=== PATIENT | female | born 1970 | race Caucasian/White ===

== ENCOUNTER → 2017-06-18 | Outpatient (CLI) | payer OTHER ==
[2017-06-18 12:06] LABS: Basophils % (A) 0 %; Eosinophils # (A) 0.1 k/uL (0-0.7); Eosinophils % (A) 2 %; HCT 41.9 % (34.0-46.0); HGB 13.5 gm/dL (11.4-16.0); Lymphocytes # (A) 1.8 k/uL (1.0-4.8); Lymphocytes % (A) 26 %; MCH 29.4 pg (25.0-35.0); MCHC 32.2 g/dL (31.0-37.0); MCV 91.2 fL (80.0-100.0); Mean Platelet Volume 7.2; Monocytes # (A) 0.4 k/uL (0-1.0); Monocytes % (A) 5 %; Neutrophils # (A) 4.5 k/uL (1.3-7.7); Neutrophils % (A) 65 %; Platelet Count 237 k/uL (150-450); RBC 4.59 m/uL (3.80-5.40); RDW 13.3 % (11.5-15.5); WBC 6.9 k/uL (3.8-10.6)
== END | disposition home or self-care (01) ==
LOC: LABPAT 11:45
PROVIDERS: ATTEND Obstetrics & Gynecology
DX: Z01.812 Encounter for preprocedural laboratory examination (principal); R87.613 High grade squamous intraepithelial lesion on cytologic smear of cervix (HGSIL)
CPT/HCPCS: 36415; 85025

== ENCOUNTER 2017-07-07 09:58 | Day surgery (SDC) | payer OTHER ==
[2017-07-02 13:21] VITALS: BMI 31.8
[~2017-07-07 09:58] MED LIST: DEXAMETHASONE SOD PHOSPHATE 10 MG/ML 1 ML VIAL IV ONE; LACTATED RINGERS 1,000 ML IV SCH; MIDAZOLAM 2 MG/2 ML VIAL IV PRN; ONDANSETRON ODT 4 MG TAB PO ONE; Pre Op ABX Message 1 EACH MISC MISCELLANE ONE; SCOPOLAMINE 1.5MG/72HR PATCH TRANSDERM ONE; fentaNYL (PF) 50 MCG/ML 2 ML AMP IV PRN
[2017-07-07] MEDS ORDERED: LACTATED RINGERS 1,000 ML IV ONE (10:40)
[2017-07-07] MEDS ORDERED: LIDOCAINE 1% 20 ML VIAL (10MG/ML) FOR IV START INTRADERMA ONE (10:40)
[2017-07-07] MEDS ORDERED: ONDANSETRON 4 MG/2 ML VIAL IVP ONE (10:50)
[2017-07-07] MEDS ORDERED: HYDROCORTISONE SUCCINATE 100 MG/2 ML VIAL IV ONE (11:46)
[2017-07-07] MEDS ORDERED: KETOROLAC 30 MG/ML 1 ML VIAL ONE (12:07)
[2017-07-07] MEDS ORDERED: fentaNYL (PF) 50 MCG/ML 2 ML AMP ONE (12:07)
[2017-07-07] MEDS ORDERED: LIDOCAINE 1% INJ 10MG/ML (20 ML MDV) ONE (12:07)
[2017-07-07] MEDS ORDERED: PROPOFOL 10 MG/ML 20 ML VIAL IV ONE (12:07)
[2017-07-07] MEDS ORDERED: MIDAZOLAM 2 MG/2 ML VIAL ONE (12:07)
[2017-07-07] MEDS ORDERED: SODIUM CHLORIDE 0.9% 50 ML with ceFAZolin 2,000 MG IV ONE ×2 (12:22)
[2017-07-07] MEDS ORDERED: FERRIC SUBSULFATE (MONSELS) JAR TOPICAL ONE (12:23)
[2017-07-07] MEDS ORDERED: ACETIC ACID 15 DROPS/ML DROPS MISCELLANE ONE (12:24)
[2017-07-07] MEDS ORDERED: IODINE/POTASS IOD (LUGOLS) BTL TOPICAL ONE (12:24)
[2017-07-07] MEDS ORDERED: VASOPRESSIN 20 UNIT/ML 1 ML VIAL SQ ONE (12:24)
--- NOTE | 2017-07-07 12:51 | P.OP ---
Date of Procedure: 07/07/17 Preoperative Diagnosis: High-grade ROYER, postmenopausal bleeding. Positive ECC. Postoperative Diagnosis: Same, pathology pending Procedure(s) Performed: Cold knife conization, endocervical curettage, hysteroscopy and D&C. Anesthesia: MICKEY Surgeon: Haily Erwin Estimated Blood Loss (ml): 50 IV fluids (ml): 500 Urine output (ml): 500 Pathology: other Description of Procedure: Patient is brought to the operating suite where a general anesthetic is administered. She's placed in the dorsal lithotomy position. Antibiotics are given. The appropriate timeout is performed to assure proper patient and procedural identification. The cervix, vagina, perineal bodies are all prepped and draped in usual sterile fashion. Examination under anesthesia reveals a grade 2-3 rectocele, and a grade 2-3 uterine prolapse. The anterior lip of the cervix is grasped with a double-tooth tenaculum. Stay sutures are placed of 0 Vicryl on either side and held with hemostats. The cervix is injected circumferentially with a dilute Pitressin solution. The bladder is drained for 500 mL of clear yellow urine. A scalpel is used circumferentially to perform the cold knife conization. The specimen is tagged at 12:00 for identification. An endocervical curettage was then performed. Cervix is then dilated systematically with Hanks dilators. Hysteroscope was placed and the cavity is distended with saline. No obvious polyps fibroids or tumors are noted. Hysteroscope was removed. The cervix is then dilated to 14 mm and a medium sharp curette is used. Curettage of the cavity is performed in this is sent under separate or third cover. When this is completed cauterization is used on the cervix until hemostasis is adequate. Monsel solution is also placed. Care is taken to cauterize the cervix well into the endocervical canal encased positive margins are encountered. The stay stitches are removed. The cervix ultimately clean and dry. All sponge needle and enhancement counts are correct at the end of the procedure. Patient is brought back to the recovery room in good condition with stable vital signs including blood pressure 121/59, pulse 54, 97% O2 saturation. Patient will follow-up with me in the office in 2 weeks. Toradol is given prior to her leaving the operative room.
[2017-07-07 13:08] VITALS: RESP 16; TEMP 97.2
[2017-07-07] MEDS ORDERED: MORPHINE SULFATE 4 MG/ML SYRINGE IV ONE (13:30)
[2017-07-07 15:33] VITALS: BP 134/83; PULSE 60
== END 2017-07-07 15:39 | disposition home or self-care (01) ==
LOC: OR 09:58
PROVIDERS: ATTEND Obstetrics & Gynecology
DX: N87.1 Moderate cervical dysplasia (principal); A63.0 Anogenital (venereal) warts; N72 Inflammatory disease of cervix uteri; N84.0 Polyp of corpus uteri; N81.3 Complete uterovaginal prolapse; N95.0 Postmenopausal bleeding; Z87.891 Personal history of nicotine dependence; Z80.7 Family history of other malignant neoplasms of lymphoid, hematopoietic and related tissues
CPT/HCPCS: 57520; 88305; 88342; 88307; J2250; J2270; J1100; J2405; J2001; J3010; J1885; J0690; J2704

== ENCOUNTER → 2017-09-21 | Outpatient (CLI) | payer OTHER ==
[2017-09-21 12:57] LABS: Anion Gap 6 mmol/L; Blood Urea Nitrogen 20 mg/dL (7-17); Carbon Dioxide 29 mmol/L (22-30); Chloride 105 mmol/L (98-107); Glucose 90 mg/dL (74-99); Potassium 4.4 mmol/L (3.5-5.1); Sodium 140 mmol/L (137-145)
[2017-09-21 13:00] LABS: Basophils % (A) 1 %; Eosinophils # (A) 0.1 k/uL (0-0.7); Eosinophils % (A) 3 %; HCT 42.7 % (34.0-46.0); HGB 14.2 gm/dL (11.4-16.0); Lymphocytes # (A) 1.9 k/uL (1.0-4.8); Lymphocytes % (A) 36 %; MCH 30.1 pg (25.0-35.0); MCHC 33.1 g/dL (31.0-37.0); Mean Platelet Volume 6.9; Monocytes # (A) 0.3 k/uL (0-1.0); Monocytes % (A) 6 %; Neutrophils # (A) 2.7 k/uL (1.3-7.7); Neutrophils % (A) 53 %; Platelet Count 210 k/uL (150-450); RDW 13.3 % (11.5-15.5); WBC 5.2 k/uL (3.8-10.6)
== END | disposition home or self-care (01) ==
LOC: LABPAT 11:51
PROVIDERS: ATTEND Obstetrics & Gynecology
DX: Z01.812 Encounter for preprocedural laboratory examination (principal); R87.613 High grade squamous intraepithelial lesion on cytologic smear of cervix (HGSIL)
CPT/HCPCS: 80051; 82565; 82947; 84520; 85025; 87086

== ENCOUNTER 2017-09-29 07:21 | Observation (INO) | payer OTHER ==
[2017-09-18 14:16] VITALS: BMI 31.8
--- NOTE | 2017-09-28 15:34 | HP ---
HISTORY AND PHYSICAL SURGERY DATE: September 29, 2017 This is a 47-year-old white female, 3, para 3-0-0-3, who presents with high- grade lesion on her cold knife conization specimen, along with positive ECC. Endometrial biopsy was performed and this reveals dyssynchronous changes only. After thorough consultation, the decision was made to proceed with vaginal hysterectomy. She denies dyspareunia, vaginal bleeding, issues with bowel or bladder, or indeed any other difficulties. REVIEW OF SYSTEMS: Otherwise negative. PAST MEDICAL HISTORY: Significant for abnormal Pap smears in the past. PAST SURGERY HISTORY: None. ALLERGIES: None known. FAMILY HISTORY: Significant for hypertension, uterine cancer, and non-Hodgkin's lymphoma. REPRODUCTIVE HISTORY: Significant for 3 vaginal deliveries, all full-term and without difficulty. 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 She is , name is Neto. CURRENT MEDICATIONS: None. EXAM: This is a pleasant white female, 183 pounds, 5 foot 2-1/2 inches, BMI 33, blood pressure 122/80, vital signs otherwise stable and the patient is afebrile. HEENT exam reveals no thyromegaly, no cervical lymphadenopathy. Breast exam reveals them to be bilaterally symmetric to inspection with no nipple discharge, axillary adenopathy, discernible lesions or masses, or skin changes. Abdomen is soft, nontender, no organosplenomegaly, active bowel sounds noted. No CVA tenderness. Extremities reveal no edema, there are good peripheral pulses. On pelvic exam, cervix is multiparous, status post conization changes are noted. Uterus is small, mobile, anteverted, anteflexed, adnexa are negative to palpation. Rectal exam reveals FIT negative stool sample, good sphincter tone. 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 With the patient's multiparous status and age in consideration, we have elected to proceed with vaginal hysterectomy. I have reviewed with the patient the risks, benefits, and alternatives of this procedure. She understands the risks to include but not be exclusive of bleeding, infection, perforation or damage to bowel, bladder, ureters, or indeed any pelvic or abdominal structures. The risks of anesthesia, aspiration, nerve damage, and even are reviewed. The ACOG pamphlet on this procedure have been given to the patient, they have been reviewed and all questions answered. MMODL / IJN: [id number] /
[~2017-09-29 07:21] MED LIST changes: +ONDANSETRON 4 MG/2 ML VIAL IVP ONE; -ONDANSETRON ODT 4 MG TAB PO ONE; -Pre Op ABX Message 1 EACH MISC MISCELLANE ONE; +ceFAZolin IN SWFI 2 GM/20 ML SYRINGE IVP ONE
[2017-09-29] MEDS ORDERED: MIDAZOLAM 2 MG/2 ML VIAL ONE (09:54)
[2017-09-29] MEDS ORDERED: diphenhydrAMINE 50 MG/ML 1 ML VIAL ONE (09:54)
[2017-09-29] MEDS ORDERED: PROPOFOL 10 MG/ML 20 ML VIAL IV ONE (09:54)
[2017-09-29] MEDS ORDERED: fentaNYL (PF) 50 MCG/ML 2 ML AMP ONE (09:54)
[2017-09-29] MEDS ORDERED: MORPHINE SULFATE (PF) 0.3 MG/0.3 ML SYR ONE (09:54)
[2017-09-29] MEDS ORDERED: VASOPRESSIN 20 UNIT/ML 1 ML VIAL SQ ONE (10:22)
[2017-09-29] MEDS ORDERED: HYDROmorphone 0.5 MG/0.5 ML SYRINGE IVP PRN (10:24)
[2017-09-29] MEDS ORDERED: NALOXONE 0.4 MG/ML 1 ML VIAL IV PRN (10:24)
[2017-09-29] MEDS ORDERED: diphenhydrAMINE 50 MG/ML 1 ML VIAL IVP PRN (11:15)
[2017-09-29] MEDS ORDERED: ZOLPIDEM 5 MG TAB PO PRN (11:15)
[2017-09-29] MEDS ORDERED: METOCLOPRAMIDE 5 MG/ML 2 ML VIAL IVP PRN (11:15)
[2017-09-29] MEDS ORDERED: IBUPROFEN 600 MG TAB PO PRN (11:15)
[2017-09-29] MEDS ORDERED: ONDANSETRON 4 MG/2 ML VIAL IVP PRN (11:15)
--- NOTE | 2017-09-29 11:15 | P.OP ---
Date of Procedure: 09/29/17 Preoperative Diagnosis: Persistent high grade squamous intraepithelial lesion on cervical biopsies and ECC Postoperative Diagnosis: Same, pathology pending Procedure(s) Performed: Vaginal hysterectomy Anesthesia: spinal Surgeon: Haily Erwin Technical Sales Engineer #1: Ivana Kelsey Estimated Blood Loss (ml): 125 IV fluids (ml): 700 Urine output (ml): 450 Pathology: none sent (Cervix and uterus) Condition: stable Disposition: PACU Operative Findings: Normal-appearing ovaries bilaterally, grade 3 rectocele. Description of Procedure: Patient is brought to the operating suite where spinal with Duramorph is administered. She's placed in the dorsal lithotomy position. The appropriate timeout is performed to assure proper patient and procedural identification. Antibiotics are given. Urine hCG is negative. The cervix, vagina, perineal bodies are all prepped and draped in usual sterile fashion. The bladder is drained for approximately 400 mL of clear yellow urine. Weighted speculum was placed into the vagina. Cervix is status post conization , grasped with a double-tooth tenaculum. The cervix is injected circumferentially with a dilute Pitressin solution. The cervix is incised with a nez perce blade scalpel old circumferentially with a V like positioning at 6:00. The vaginal mucosa is swept well from the underlying fascial plane. The peritoneum is entered at 6:00 and suture tied with 2-0 Vicryl. The large billed speculum is then placed. At all times care is taken to keep the mucosa swept well from the underlying planes, to avoid bladder and/or ureteral injury. Uterosacral cardinal ligaments are identified, clamped cut and tied with 0 Vicryl suture. This is held laterally with hemostats. The uterine vasculature is identified, clamped cut and suture ligated. 2 additional pedicles are taken superior to the vessels. The anterior peritoneum was then entered at 12:00. Syed clamps are used across the final pedicles, the uterus and cervix are removed and sent to pathology. The remaining pedicles are tied with 0 Vicryl suture, flashed, and retied for excellent hemostasis. A sponge stick is used to visualize the ovaries and these appear normal bilaterally. The previously placed suture at 6:00 is then brought around in a pursestring fashion to close the peritoneum. The previously held uterosacral cardinal ligaments are brought across to incorporate the opposite ligament as well as vaginal mucosa. 3 additional [id number] sutures are used on the vaginal mucosa for final cuff closure. Vagina is packed with one-inch iodophor gauze with basic tracing. Rivas catheter is placed, an additional 50 mL of clear yellow urine is noted. All sponge needle and enhancement counts are correct at the end of the procedure. Patient is brought back to recovery room in very good condition with stable vital signs, pulse 68, 99% O2 saturation, blood pressure 103/51. Total estimated blood loss 125 mL's.
[2017-09-29] MEDS: KETOROLAC 30 MG/ML 1 ML VIAL IVP PRN ×2 (11:58→20:18)
[2017-09-29] MEDS: NALBUPHINE 10 MG/ML VIAL (10ML MDV) IV PRN ×2 (14:29→21:06)
[2017-09-29] MEDS: ONDANSETRON 4 MG/2 ML VIAL IVP PRN (21:42)
[2017-09-30 03:11] VITALS: RESP 16
[2017-09-30] MEDS: KETOROLAC 30 MG/ML 1 ML VIAL IVP PRN (05:34)
[2017-09-30] MEDS: ONDANSETRON 4 MG/2 ML VIAL IVP PRN (07:39)
[2017-09-30 08:10] VITALS: BP 124/75; PULSE 53; TEMP 98
--- NOTE | 2017-09-30 08:13 | P.DS ---
Providers Date of admission: 09/30/17 06:22 Expected date of discharge: 09/30/17 Attending physician: Haily Erwin Primary care physician: Rohan [facility] Course: This is a 47-year-old white female 3 para 3003 who presented for vaginal hysterectomy for persistent high grade changes on the cervix, positive ECC, despite cold knife conization previously performed. Please see my dictated history and physical for details. Patient was admitted and underwent vaginal hysterectomy. Ovaries appeared normal to inspection and therefore were left in situ per her wishes and our discussion. Vagina was packed with iodoform gauze, Rivas catheter placed. Please see dictated operative note for details. This morning the patient is doing well. Rivas catheter has been removed and she is voiding. Vaginal pack is removed there is only scant vaginal drainage. She is passing flatus and tolerating regular food. She is ambulating and feels well. She has mild itching but otherwise no complaints. Her chest is clear in all flores. Extremities are negative for edema. Perineal body is clean and dry. Active bowel sounds, no CVA tenderness. Patient is judged to be in good condition for discharge home. I reminded her no intercourse, heavy lifting, no tampons or douching. She will use [id number] Advil or Aleve, or ibuprofen 200 mg pills, 3 every 6 hours as needed. I've asked her to call me with any fevers shakes or chills, foul smelling or bloody vaginal drainage, with any pain not alleviated by over-the- counter products or indeed with any concerns. She will follow-up in the office with me in 2 weeks. Pathology report on the specimen is pending at this time. Patient Condition at Discharge: Good Plan - Discharge Summary Discharge Rx Participant: No New Discharge Prescriptions: No Action Multivitamins, Thera [Multivitamin (formulary)] 1 tab PO DAILY Averill-3 Fatty Acids/Fish Oil [Fish Oil 1,000 mg Softgel] 1 each PO DAILY Calcium/Vit D/Mag 2 tab PO DAILY Discharge Medication List Calcium/Vit D/Mag 2 tab PO DAILY 07/02/17 [History] Multivitamins, Thera [Multivitamin (formulary)] 1 tab PO DAILY 07/02/17 [History ] Averill-3 Fatty Acids/Fish Oil [Fish Oil 1,000 mg Softgel] 1 each PO DAILY [History] Follow up Appointment(s)/Referral(s): Haily Erwin MD [STAFF PHYSICIAN] - 2 Weeks Discharge Disposition: HOME SELF-CARE
--- NOTE | 2017-09-30 11:45 | P.PN ---
Progress Note - Text Date:[09/30] Time:[706am] Patient is status post [ant repair]. Patient seen this morning with VAS score of [2]. c/o of pruritus, no c/o nausea/vomiting, comfortable and doing well today.
== END 2017-09-30 13:30 | disposition home or self-care (01) ==
LOC: OR 07:21 → 4FBP 11:19 → OR 09-30 06:22
PROVIDERS: ADMIT Obstetrics & Gynecology; ATTEND Obstetrics & Gynecology
DX: R87.613 High grade squamous intraepithelial lesion on cytologic smear of cervix (HGSIL) (principal); R87.810 Cervical high risk human papillomavirus (HPV) DNA test positive; N81.6 Rectocele; N84.0 Polyp of corpus uteri; N80.0 Endometriosis of uterus; Z80.7 Family history of other malignant neoplasms of lymphoid, hematopoietic and related tissues; Z80.49 Family history of malignant neoplasm of other genital organs; Z82.49 Family history of ischemic heart disease and other diseases of the circulatory system; Z87.891 Personal history of nicotine dependence
CPT/HCPCS: 58260; 86900; 86901; 86850; 88309; G0378; J2250; J1200; J1100; J2300; J2405 ×2; J2274; J3010; J1885 ×2; J2704; J0690

== ENCOUNTER → 2019-03-29 | Outpatient (CLI) | payer OTHER ==
--- NOTE | 2019-03-30 11:25 | MM ---
Reason for exam: screening (asymptomatic). Last mammogram was performed 1 year and 9 months ago. History: Patient history of colon cancer. Family history of breast cancer in paternal aunt. Physical Findings: A clinical breast exam by your physician is recommended on an annual basis and results should be correlated with mammographic findings. MG Screening Mammo w CAD Bilateral CC and MLO view(s) were taken. Prior study comparison: June 18, 2017, bilateral MG screening mammo w CAD. November 20, 2015, bilateral MG screening mammo w CAD. The breast tissue is heterogeneously dense. This may lower the sensitivity of mammography. There is no discrete abnormality. No significant changes when compared with prior studies. ASSESSMENT: Negative, BI-RAD 1 RECOMMENDATION: Routine screening mammogram of both breasts in 1 year.
== END | disposition home or self-care (01) ==
LOC: RADMAMWWP 10:50
PROVIDERS: ATTEND Family Medicine
DX: Z12.31 Encounter for screening mammogram for malignant neoplasm of breast (principal)
CPT/HCPCS: 77067